=== PATIENT | female | born 1995 | race Caucasian/White ===

== ENCOUNTER 2017-04-24 06:18 | Day surgery (SDC) | payer BC ==
[~2017-04-24] VITALS: Ht 177.8 cm; Wt 69.9 kg
[2017-04-24 06:47] LABS: NEG OBC UR NEG; POS OBC UR POS
[2017-04-24] MEDS ORDERED: HYDROmorphone 2 MG/ML VIAL IV PRN (07:00)
[2017-04-24] MEDS ORDERED: ONDANSETRON PF 4 MG/2 ML VIAL. IV PRN (07:00)
[2017-04-24] MEDS ORDERED: LIDOCAINE 1% 1 ML SYRINGE. ID PRN (07:00)
[2017-04-24] MEDS ORDERED: MORPHINE SULFATE 2 MG/ML DISP.SYRIN. IV PRN (07:00)
[2017-04-24] MEDS ORDERED: fentaNYL PF VIAL 100 MCG/2 ML VIAL IV PRN (07:00)
[2017-04-24] MEDS ORDERED: PROCHLORPERAZINE 10 MG/2 ML VIAL. IV PRN (07:00)
[2017-04-24] MEDS: IV RINGERS,LACTATED 1000ML 1,000 ML IV SCH ×2 (07:00→09:53)
[2017-04-24] MEDS ORDERED: MIDAZOLAM HCL/PF 2 MG/2 ML VIAL. ONE (07:28)
[2017-04-24] MEDS ORDERED: LIDOCAINE 2% PF Vial for OR 5 ML VIAL. ONE (07:28)
[2017-04-24] MEDS ORDERED: DEXAMETHASONE SOD PHOS 20 MG/5 ML VIAL. ONE (07:28)
[2017-04-24] MEDS ORDERED: fentaNYL PF VIAL 100 MCG/2 ML VIAL ONE ×2 (07:28→08:47)
[2017-04-24] MEDS ORDERED: ONDANSETRON PF 4 MG/2 ML VIAL. ONE (07:28)
[2017-04-24] MEDS ORDERED: PROPOFOL 20 ML IV ONE (07:28)
[2017-04-24] MEDS ORDERED: IRON1TAB2 PO ×2 (07:38)
--- NOTE | 2017-04-24 08:34 | PDOC ---
BRIEF OPERATIVE NOTE Pre-Op Diagnosis Endometrial polyp Post-Op Diagnosis Same Procedure Performed Op [facility] [place] Sur[place] Dr. Vital Anesthesia Type: General Blood Loss 10 ml Specimens Obtained endometrial polyp Findings nml size uterus with endometrial polyps Complications none MARITZA VITAL Jr, MD Apr 24, 2017 08:34
--- NOTE | 2017-04-24 08:35 | DISCH ---
DISCHARGE INSTRUCTIONS Condition on Discharge Condition on Discharge: Stable Activity After Discharge Activity Instructions for Disc: Activity as tolerated Lifting Instructions after Dis: No heavy lifting Driving Instructions after Dis: Do not drive today Diet after Discharge Diet after Discharge: Regular Contacting the [facility] after DC Call your doctor for: Concerns you may have Follow-Up Follow up with: Dr. Vital in 1 wk MARITZA VITAL Jr, MD Apr 24, 2017 08:35
[2017-04-24] MEDS ORDERED: SEVOFLURANE 31 TO 60 MINUTES. IH ONE (08:46)
[2017-04-24] MEDS ORDERED: KETOROLAC 30 MG/ML INJ FOR OR. INJ ONE (08:46)
[2017-04-24] MEDS ORDERED: OXYC-323 PO (08:47)
--- NOTE | 2017-04-24 09:09 | OP ---
DATE OF SURGERY: 04/24/2017 PREOPERATIVE DIAGNOSIS: Endometrial polyps. POSTOPERATIVE DIAGNOSIS: Endometrial polyps. PROCEDURE: Operative hysteroscopy. SURGEON: Jose Armando Vital MD ANESTHESIA: GETA. ESTIMATED BLOOD LOSS: 10 mL. COMPLICATIONS: None. FINDINGS: Normal size uterus with endometrial polyps. SUMMARY: A 21-year-old with abnormal uterine bleeding. She had in office endosee procedure, which confirmed endometrial polyps. The patient was counseled on the risks, benefits and expectations of operative hysteroscopy for endometrial hysteroscopic polypectomy and voiced clear understanding to proceed. DESCRIPTION OF PROCEDURE: The patient was taken to surgery suite and placed in dorsal lithotomy position. She was prepped with Betadine solution and draped in sterile fashion. After adequate anesthesia, weighted speculum and curved [place] were placed vaginally. The anterior lip of the cervix grasped with a single tooth tenaculum. Cervix dilated with Hegar dilators up to size 7. The TruClear hysteroscope was placed. The endometrial polyps were resected. The hysteroscope was then removed. Single tooth tenaculum and weighted speculum were removed. The patient tolerated the procedure well. Sponge and needle count correct x 3. JOSE ARMANDO VITAL MD DR: LISSA/gutierrez JOB#: [id number] / [id number]
[2017-04-24] MEDS: fentaNYL PF VIAL 100 MCG/2 ML VIAL IV PRN ×2 (09:12→09:16)
[2017-04-24] MEDS ORDERED: oxyCODONE/APAP 5/325 1 TAB TABLET PO ONE (09:45)
[2017-04-24 10:33] VITALS: BP 118/78
--- NOTE | 2017-04-25 14:28 | PATHOLOGY ---
PATHOLOGY REPORT * * * * * * * * FINAL DIAGNOSIS: Endometrial curettings: - Proliferative endometrium. COMMENT: Sections of the endometrial curettings reveal segments of proliferative endometrium. There is no evidence of hyperplasia or malignancy. (JPM:mml; 04/25/2017) REPORT ELECTRONICALLY SIGNED BY: Samm Hernadez M.D. DATE/TIME: 04/25/2017 14:28 * * * * * * * * GROSS PATHOLOGY: Received in formalin labeled "Kevin Foreman, endometrial polyp," are several segments of red-brown membranous tissue admixed with mucoid material measuring 1.2 x 0.8 x 0.3 cm in aggregate dimensions. The specimen is submitted entirely in cassette A1. (JPM; 04/24/17) INITIAL CPT CODE(S): A; 05638 Professional services performed [place] [address] Technical services performed by [facility] at [address] [place] [address]. SPECIMEN(S) RECEIVED: A.Endometrial polyp CLINICAL HISTORY: Endometrial polyps PATIENT: KEVIN FOREMAN /AGE: 905/10/1995 (Age: 21) PATIENT #: [id number] ALT CASE #: SPECIMEN COLLECTION DATE: 04/24/2017 SPECIMEN RECEIVED DATE: 04/24/2017 [facility] - [address] [place] [address] - PHONE: [phone] * * * END OF REPORT * * *
== END 2017-04-24 11:14 | disposition home or self-care (01) ==
LOC: SURG 06:18
PROVIDERS: ATTEND Obstetrics & Gynecology
DX: N84.0 Polyp of corpus uteri (principal); D64.9 Anemia, unspecified; Z91.040 Latex allergy status; Z91.048 Other nonmedicinal substance allergy status
CPT/HCPCS: 58558; 81025; J0780; J1100; J1885; J2250; J2405; J2704; J3010; J2001

== ENCOUNTER → 2017-09-02 | Outpatient (CLI) | payer OTHER | END | disposition home or self-care (01) | LOC: KCIC MRI 11:53 | DX: S69.81XA Other specified injuries of right wrist, hand and finger(s), initial encounter (principal); M67.431 Ganglion, right wrist; X58.XXXA Exposure to other specified factors, initial encounter; Y93.89 Activity, other specified; Y92.89 Other specified places as the place of occurrence of the external cause; Y99.8 Other external cause status | CPT/HCPCS: 73221 ==